=== PATIENT | male | born 1990 | race Caucasian/White ===

== ENCOUNTER 2019-07-28 13:40 | Emergency (ER) | payer SELFPAY ==
[~2019-07-28] VITALS: Ht 180.3 cm; Wt 84.8 kg
[2019-07-28 13:42] VITALS: BP 149/100
== END 2019-07-28 15:09 | disposition home or self-care (01) ==
LOC: ED 13:40
DX: S60.011A Contusion of right thumb without damage to nail, initial encounter (principal); W23.0XXA Caught, crushed, jammed, or pinched between moving objects, initial encounter; Y93.89 Activity, other specified; Y92.89 Other specified places as the place of occurrence of the external cause; Y99.8 Other external cause status

== ENCOUNTER 2020-06-03 18:15 | Emergency (ER) | payer SELFPAY ==
[~2020-06-03] VITALS: Wt 85.7 kg
[2020-06-03 18:21] VITALS: BP 133/69
[2020-06-03] MEDS ORDERED: SEPTDS PO (18:35)
== END 2020-06-03 18:59 | disposition home or self-care (01) ==
LOC: ED 18:15
DX: S00.262A Insect bite (nonvenomous) of left eyelid and periocular area, initial encounter (principal); W57.XXXA Bitten or stung by nonvenomous insect and other nonvenomous arthropods, initial encounter; Y93.89 Activity, other specified; Y92.89 Other specified places as the place of occurrence of the external cause; Y99.8 Other external cause status

== ENCOUNTER 2020-08-02 14:26 | Emergency (ER) | payer BC ==
[~2020-08-02] VITALS: Wt 77.6 kg
[~2020-08-02 14:26] MED LIST: SEPTDS PO
[2020-08-02 14:39] VITALS: BP 131/87
[2020-08-02] MEDS ORDERED: NAPROSYN500 MG PO (15:00)
[2020-08-02] MEDS ORDERED: MEDROL DOSEPAK4 MG PO (15:00)
[2020-08-02] MEDS ORDERED: METHOCARBAMOL500 M1 PO (15:00)
== END 2020-08-02 20:41 | disposition home or self-care (01) ==
LOC: ED 14:26
DX: S39.012A Strain of muscle, fascia and tendon of lower back, initial encounter (principal); X50.0XXA Overexertion from strenuous movement or load, initial encounter; Y93.89 Activity, other specified; Y92.89 Other specified places as the place of occurrence of the external cause; Y99.8 Other external cause status

== ENCOUNTER 2021-08-24 07:02 | Emergency (ER) | payer BC ==
[~2021-08-24] VITALS: Ht 180.3 cm; Wt 85.7 kg
[~2021-08-24 07:02] MED LIST changes: +MEDROL DOSEPAK4 MG PO; +METHOCARBAMOL500 M1 PO; +NAPROSYN500 MG PO
[2021-08-24 07:58] LABS: BASO # 0.1 10*3/uL (0.0-0.1); BASO % 0.5 % (0.0-1.0); EOS # 0.2 10*3/uL (0.0-0.4); EOS % 2.1 % (1.0-4.0); HEMATOCRIT 45.4 % (42.0-52.0); LYMPH # 2.8 10*3/uL (1.3-4.4); LYMPH % 28.9 % (27.0-41.0); MEAN CELL VOLUME 85.7 fl (80.0-94.0); MEAN CORPUSCULAR HGB 29.4 pg (27.0-31.0); MEAN CORPUSCULAR HGB CONC 34.4 g/dl (33.0-37.0); MEAN PLATELET VOLUME 8.7 fl (9.6-12.3); MONO # 1.1 10*3/uL (0.1-1.0); MONO % 11.1 % (3.0-9.0); NEUT # 5.5 10*3/uL (2.3-7.9); NEUT % 57.1 % (47.0-73.0); PLATELET COUNT AUTOMATED 310 10*3/uL (130-400); RED CELL DISTRI WIDTH 11.8 % (0-14.5); WHITE BLOOD COUNT 9.6 10*3/uL (4.8-10.8)
[2021-08-24 08:18] LABS: ALBUMIN 3.8 gm/dl (3.1-4.5); BUN 13 mg/dl (7-24); CHLORIDE 106 mmol/L (98-107); CREATININE 1.03 mg/dL (0.70-1.30); POTASSIUM 3.6 mmol/L (3.5-5.1); SGOT/AST 14 IU/L (3-35); SGPT/ALT 37 U/L (12-78); SODIUM 142 mmol/L (136-145); TOTAL PROTEIN 7.4 gm/dL (6.4-8.2)
[2021-08-24 08:22] LABS: ALKALINE PHOSPHATASE 123 U/L (45-117)
[2021-08-24 08:28] LABS: TROPONIN I < 0.015 ng/ml (<0.045)
[2021-08-24 10:53] VITALS: BP 127/78
[2021-08-24] MEDS ORDERED: MECLIZINE HCL25 M2 PO (10:57)
== END 2021-08-24 11:19 | disposition home or self-care (01) ==
LOC: ED 07:02
PROVIDERS: Emergency Medicine
DX: R42 Dizziness and giddiness (principal)

== ENCOUNTER 2022-06-21 06:51 | Emergency (ER) | payer OTHER ==
[~2022-06-21] VITALS: Ht 180.3 cm; Wt 81.6 kg
[~2022-06-21 06:51] MED LIST changes: +MECLIZINE HCL25 M2 PO
[2022-06-21 07:19] VITALS: BP 146/91
[2022-06-21] MEDS ORDERED: CYCLOBENZAPRINE10 MG PO (07:21)
[2022-06-21] MEDS ORDERED: TYLENOL325 M1 PO (09:31)
[2022-06-21] MEDS ORDERED: NAPROXEN250 MG PO (09:31)
== END 2022-06-21 09:39 | disposition home or self-care (01) ==
LOC: ED 06:51
DX: M25.552 Pain in left hip (principal); Z90.49 Acquired absence of other specified parts of digestive tract

== ENCOUNTER 2022-10-29 17:25 | Emergency (ER) | payer BC, OTHER ==
[~2022-10-29] VITALS: Ht 180.3 cm; Wt 86.2 kg
[~2022-10-29 17:25] MED LIST changes: +CYCLOBENZAPRINE10 MG PO; +NAPROXEN250 MG PO; +TYLENOL325 M1 PO
[2022-10-29 18:11] VITALS: BP 128/79
[2022-10-29] MEDS ORDERED: CYCLOBENZAPRINE5 M3 PO (19:56)
[2022-10-29] MEDS ORDERED: Motrin,Rufen800 MG PO (19:56)
== END 2022-10-29 19:57 | disposition home or self-care (01) ==
LOC: ED 17:25
DX: S39.012A Strain of muscle, fascia and tendon of lower back, initial encounter (principal); Z90.49 Acquired absence of other specified parts of digestive tract; X50.0XXA Overexertion from strenuous movement or load, initial encounter; Y93.89 Activity, other specified; Y92.89 Other specified places as the place of occurrence of the external cause; Y99.8 Other external cause status

== ENCOUNTER 2022-11-01 17:40 | Emergency (ER) | payer BC, OTHER ==
[~2022-11-01] VITALS: Ht 180.3 cm; Wt 86.2 kg
[~2022-11-01 17:40] MED LIST changes: +CYCLOBENZAPRINE5 M3 PO; +Motrin,Rufen800 MG PO
[2022-11-01 17:51] VITALS: BP 143/89
[2022-11-01] MEDS ORDERED: ZITHROMAX500 MG PO (19:46)
== END 2022-11-01 20:00 | disposition home or self-care (01) ==
LOC: ED 17:40
DX: J06.9 Acute upper respiratory infection, unspecified (principal); Z90.49 Acquired absence of other specified parts of digestive tract

== ENCOUNTER 2022-11-24 17:01 | Emergency (ER) | payer BC, OTHER ==
[~2022-11-24] VITALS: Ht 180.3 cm; Wt 86.2 kg
[~2022-11-24 17:01] MED LIST changes: +ZITHROMAX500 MG PO
[2022-11-24 17:41] VITALS: BP 137/81
[2022-11-24] MEDS ORDERED: NAPROXEN250 MG PO (19:19)
[2022-11-24] MEDS ORDERED: METHOCARBAMOL500 M1 PO (19:19)
== END 2022-11-24 19:30 | disposition home or self-care (01) ==
LOC: ED 17:01
DX: S39.012A Strain of muscle, fascia and tendon of lower back, initial encounter (principal); F31.9 Bipolar disorder, unspecified; Z90.49 Acquired absence of other specified parts of digestive tract; X50.0XXA Overexertion from strenuous movement or load, initial encounter; Y93.89 Activity, other specified; Y92.89 Other specified places as the place of occurrence of the external cause; Y99.0 Civilian activity done for income or pay

== ENCOUNTER 2023-01-31 16:48 | Emergency (ER) | payer BC, OTHER ==
[~2023-01-31] VITALS: Ht 180.3 cm; Wt 89.8 kg
[2023-01-31 16:57] VITALS: BP 136/81
== END 2023-01-31 18:28 | disposition home or self-care (01) ==
LOC: ED 16:48
DX: S63.501A Unspecified sprain of right wrist, initial encounter (principal); M79.641 Pain in right hand; F31.9 Bipolar disorder, unspecified; Z90.49 Acquired absence of other specified parts of digestive tract; X50.0XXA Overexertion from strenuous movement or load, initial encounter; Y93.89 Activity, other specified; Y92.89 Other specified places as the place of occurrence of the external cause; Y99.0 Civilian activity done for income or pay

== ENCOUNTER 2023-05-16 21:19 | Emergency (ER) | payer SELFPAY ==
[~2023-05-16] VITALS: Ht 180.3 cm; Wt 85.3 kg
[2023-05-16 22:44] VITALS: BP 131/77
== END 2023-05-17 00:33 | disposition home or self-care (01) ==
LOC: ED 21:19
DX: S63.502A Unspecified sprain of left wrist, initial encounter (principal); F31.9 Bipolar disorder, unspecified; Z90.49 Acquired absence of other specified parts of digestive tract; X50.1XXA Overexertion from prolonged static or awkward postures, initial encounter; Y93.89 Activity, other specified; Y92.89 Other specified places as the place of occurrence of the external cause; Y99.8 Other external cause status

== ENCOUNTER 2023-08-11 15:00 | Emergency (ER) | payer SELFPAY ==
[~2023-08-11] VITALS: Ht 180.3 cm; Wt 81.6 kg
[2023-08-11 15:07] VITALS: BP 110/74
== END 2023-08-11 16:23 | disposition home or self-care (01) ==
LOC: ED 15:00
DX: M25.562 Pain in left knee (principal); F31.9 Bipolar disorder, unspecified; Z90.49 Acquired absence of other specified parts of digestive tract

== ENCOUNTER 2023-12-17 14:01 | Emergency (ER) | payer SELFPAY ==
[~2023-12-17] VITALS: Ht 180.3 cm; Wt 86.2 kg
[2023-12-17 14:11] VITALS: BP 146/94
[2023-12-17] MEDS ORDERED: PREDNISONE20 M1 PO (15:20)
[2023-12-17] MEDS ORDERED: methylPREDNISolone sod succ 125 MG VIAL IM ONE (15:25)
== END 2023-12-17 15:26 | disposition home or self-care (01) ==
LOC: ED 14:01
DX: M25.562 Pain in left knee (principal); F31.9 Bipolar disorder, unspecified; Z90.49 Acquired absence of other specified parts of digestive tract

== ENCOUNTER 2024-01-20 11:33 | Emergency (ER) | payer OTHER ==
[~2024-01-20] VITALS: Ht 180.3 cm; Wt 81.6 kg
[~2024-01-20 11:33] MED LIST changes: +PREDNISONE20 M1 PO
[2024-01-20 12:00] VITALS: BP 144/69
[2024-01-20] MEDS ORDERED: ACETAMINOPHEN 325 MG TAB PO ONE (12:05)
[2024-01-20] MEDS ORDERED: PREDNISONE50 MG PO (13:30)
== END 2024-01-20 13:33 | disposition home or self-care (01) ==
LOC: ED 11:33
DX: S46.911A Strain of unspecified muscle, fascia and tendon at shoulder and upper arm level, right arm, initial encounter (principal); F31.9 Bipolar disorder, unspecified; Z90.49 Acquired absence of other specified parts of digestive tract; X58.XXXA Exposure to other specified factors, initial encounter; Y93.89 Activity, other specified; Y92.009 Unspecified place in unspecified non-institutional (private) residence as the place of occurrence of the external cause; Y99.8 Other external cause status

== ENCOUNTER 2024-06-20 16:05 | Emergency (ER) | payer OTHER ==
[~2024-06-20] VITALS: Ht 180.3 cm; Wt 86.2 kg
[~2024-06-20 16:05] MED LIST changes: +PREDNISONE50 MG PO
[2024-06-20 16:12] VITALS: BP 148/87
[2024-06-20] MEDS ORDERED: AVPAK AZITHROM250 M1 PO (16:24)
== END 2024-06-20 16:30 | disposition home or self-care (01) ==
LOC: ED 16:05
DX: J32.9 Chronic sinusitis, unspecified (principal); F31.9 Bipolar disorder, unspecified; Z90.49 Acquired absence of other specified parts of digestive tract